=== PATIENT | male | born 1960 | race Caucasian/White ===

== ENCOUNTER 2020-09-25 05:35 | Emergency (ER) | payer OTHER ==
[~2020-09-25] VITALS: Ht 177.8 cm; Wt 137.0 kg
[2020-09-25 05:41] VITALS: BP 153/90
== END 2020-09-25 06:55 | disposition home or self-care (01) ==
LOC: ER 05:35
DX: T40.2X1A Poisoning by other opioids, accidental (unintentional), initial encounter (principal); R41.0 Disorientation, unspecified; Z88.5 Allergy status to narcotic agent; Y92.89 Other specified places as the place of occurrence of the external cause
CPT/HCPCS: 99281